=== PATIENT | male | born 2000 ===

== ENCOUNTER → 2018-07-28 | Outpatient (CLI) | payer BC ==
[~2018-07-28] MED LIST: IBUP800T37 PO; MELO-205 PO
--- NOTE | 2018-07-28 09:22 | RADIOLOGY IMAGING REPORT ---
FACILITY: [facility] PATIENT NAME: George Ray : 2000 MR: [id number] V: [id number] EXAM DATE: ORDERING PHYSICIAN: NICOLE WALDROP TECHNOLOGIST: Location: [facility] [place] Patient: George Ray : 2000 Visit/Account:[id number] Date of Sevice: 07/28/2018 TOE RIGHT FOOT SECOND DIGIT HISTORY: Pain R 2nd toe. Stubbed toe 2 days ago on table. Two-view examination FINDINGS: No acute fractures seen within the second ray of right foot. Joint spaces well-maintained. Visualiz ed adjacent first and third toes are unremarkable. IMPRESSION: 1. Negative right second toe Report Dictated By: Manuel Erwin MD at 07/28/2018 9:14 AM Report E-Signed By: Manuel Erwin MD at 07/28/2018 9:16 AM WSN:[id number]
== END ==
LOC: RAD 08:37
PROVIDERS: ATTEND Nurse Practitioner Primary Care
DX: M79.674 Pain in right toe(s) (principal)